=== PATIENT | female | born 1980 | race Caucasian/White ===

== ENCOUNTER → 2020-01-11 11:31 | Outpatient (CLI) | payer BC, MEDICARE, MEDICAID, SELFPAY ==
[2020-01-11 13:16] LABS: Amphetamine Urine VISTA NEGATIVE (<1000 ng/mL); Barbiturate Urine VISTA NEGATIVE (< 200 ng/mL); Benzodiazepine Urine VISTA NEGATIVE (< 200 ng/mL); Cocaine Urine VISTA NEGATIVE (< 300 ng/mL); Ecstacy Urine VISTA NEGATIVE (< 500 ng/mL); Methadone Urine VISTA NEGATIVE (< 300 ng/mL); PCP Urine VISTA NEGATIVE (< 25 ng/mL); THC Urine VISTA NEGATIVE (< 50 ng/mL); Vista UDS pH Range 6
== END ==
PROVIDERS: Referring Provider Anesthesiology Pain Medicine; Visit Provider Anesthesiology Pain Medicine
DX: F11.20 Opioid dependence, uncomplicated (principal)
CPT/HCPCS: 80307

== ENCOUNTER → 2020-06-14 14:47 | Outpatient (CLI) | payer MEDICARE, MEDICAID, SELFPAY ==
[2020-06-14 16:03] LABS: Amphetamine Urine VISTA POSITIVE (<1000 ng/mL); Barbiturate Urine VISTA NEGATIVE (< 200 ng/mL); Benzodiazepine Urine VISTA NEGATIVE (< 200 ng/mL); Cocaine Urine VISTA NEGATIVE (< 300 ng/mL); Ecstacy Urine VISTA POSITIVE (< 500 ng/mL); Methadone Urine VISTA NEGATIVE (< 300 ng/mL); PCP Urine VISTA NEGATIVE (< 25 ng/mL); THC Urine VISTA NEGATIVE (< 50 ng/mL); Vista UDS pH Range 5
== END ==
PROVIDERS: Visit Provider Anesthesiology Pain Medicine
DX: F11.20 Opioid dependence, uncomplicated (principal)
CPT/HCPCS: 80307

== ENCOUNTER → 2020-11-03 12:15 | Outpatient (CLI) | payer MEDICARE, MEDICAID, SELFPAY ==
[2020-11-03 13:35] LABS: Amphetamine Urine VISTA NEGATIVE (<1000 ng/mL); Barbiturate Urine VISTA NEGATIVE (< 200 ng/mL); Benzodiazepine Urine VISTA NEGATIVE (< 200 ng/mL); Cocaine Urine VISTA NEGATIVE (< 300 ng/mL); Ecstacy Urine VISTA POSITIVE (< 500 ng/mL); Methadone Urine VISTA NEGATIVE (< 300 ng/mL); PCP Urine VISTA NEGATIVE (< 25 ng/mL); THC Urine VISTA NEGATIVE (< 50 ng/mL); Vista UDS pH Range 5
== END ==
PROVIDERS: Referring Provider Anesthesiology Pain Medicine; Visit Provider Anesthesiology Pain Medicine
DX: F11.20 Opioid dependence, uncomplicated (principal)
CPT/HCPCS: 80307

== ENCOUNTER → 2022-11-25 | Outpatient (CLI) | payer MEDICARE, MEDICAID, SELFPAY ==
[2022-11-25 13:51] LABS: Amphetamine Urine VISTA POSITIVE (<1000 ng/mL); Barbiturate Urine VISTA NEGATIVE (< 200 ng/mL); Benzodiazepine Urine VISTA NEGATIVE (< 200 ng/mL); Cocaine Urine VISTA NEGATIVE (< 300 ng/mL); Ecstacy Urine VISTA POSITIVE (< 500 ng/mL); Methadone Urine VISTA NEGATIVE (< 300 ng/mL); PCP Urine VISTA NEGATIVE (< 25 ng/mL); THC Urine VISTA NEGATIVE (< 50 ng/mL); Vista UDS pH Range 5
== END | disposition home or self-care (01) ==
LOC: LAB 13:16
PROVIDERS: Referring Provider Anesthesiology Pain Medicine; Visit Provider Anesthesiology Pain Medicine
DX: F11.20 Opioid dependence, uncomplicated (principal)
CPT/HCPCS: 80307

== ENCOUNTER → 2023-08-04 | Outpatient (CLI) | payer MEDICARE, MEDICAID, SELFPAY ==
--- OUTSIDE RECORDS SUMMARY | 2023-08-04 13:14 | XMS RPT_ITS | CCD ---
Author Name Unknown Address [phone] [place] [address] Organization [facility] Care Team Providers Care Reel Cart Operator Name Role Phone Farver, Yanelis K. Unavailable Unavailable MOROCCO, YE Unavailable Unavailable FARVER, YANELIS K. Unavailable Unavailable MOROCCO, YE Unavailable Unavailable FARVER, YANELIS K. Unavailable Unavailable Geiger, Yanelis Darlene Unavailable Leo Bob Jr Unavailable Unavailable Leo Bob Jr Unavailable Unavailable Red, Joelle R Unavailable Unavailable Red Joelle R Unavailable Unavailable Shine, Blake J Unavailable Unavailable Shine, Blake J Unavailable Unavailable Farver, Yanelis K Unavailable Unavailable Farver, Yanelis K Unavailable Unavailable Yanelis Geiger Primary Care Provider Yanelis Geiger Primary Care Provider [phone] Anastasiya Valdez Unavailable Unavailable SAUL III, ROLDAN J Admitting Unavailable SAUL III, ROLDAN J Attending Unavailable FARVER, YANELIS Primary Care Unavailable FARVER, YANELIS Consulting Unavailable SAUL III, ROLDAN J Admitting Unavailable SAUL III, ROLDAN J Attending Unavailable SAUL III, ROLDAN J Consulting Unavailable NONE, NONE Consulting Unavailable LAKSHMIPATHY, NARENDRANATH Admitting Unava ilable LAKSHMIPATHY, NARENDRANATH Attending Unava ilable FARVER, YANELIS Primary Care Unavailable FARVER, YANELIS Consulting Unavailable Yanelis Geiger Primary Care Provider [phone] CINDY TORRES Admitting Unavailable CINDY TORRES Referring Unavailable YANELIS GEIGER Primary Care Unavailable José Miguel MA, Anastasiya Unavailable Unavailable Murray Lopez CNP Primary Care Provider VANDANA LOPEZKRISTIN NGUYEN Primary Care Unavailable RAMAN DE LA O Attending Unavailable RAMAN DE LA O Admitting Unavailable ANGLEELLIOT Attending Unavailab le DAY, SAUL VARGAS Primary Care Unavailable PRYKHODKO, TICO LOPEZ Attending U navailable DAY, SAUL ALICIA Primary Care Unavailable PRYKHODKO, TICO LOPEZ Attending U navailable DAY, SAUL ALICIA Primary Care Unavailable DAY, SAUL ALICIA Primary Care Unavailable PRYKHODKO, TICO PETERSH Attending U navailable DAY, SAUL ALICIA Primary Care Unavailable ELLIOT VARGAS Referring Unavailab le ANGLE, ELLIOT YE Attending Unavailab le ANGLE, ELLIOT YE Attending Unavailab le DAY, SAUL VARGAS Primary Care Unavailable ELLIOT VARGAS Referring Unavailab AURORA Morales Attending Unavailable AURORA PEREZ Primary Care Unavailable Chris INVESTMENT DIRECTOR-Aurora PETERSON Primary Care Provider Allergies Allergy Classification Reported Allergen(s) Allergy Type Date of Onset Reaction(s) Facility Mold Extract (2 sources) Mold Extract; Translations: [MOLD] Drug Allergy 8 Itching [facility] Opioid Agonists (2 sources) traMADol; Translations: [TRAMADOL] Drug Allergy 8 [facility] Pollen (2 sources) Tree and shrub pollen; Translations: [TREE AND SHRUB POLLEN] Substance Allergy 8 Itching, Rash [facility] (20 sources) traMADol; Translations: [TRAMADOL] Drug Allergy 8 Unknown [facility] Repository (1 source) NO KNOWN ALLERGIES; Translations: [NO KNOWN ALLERGIES] Propensity to adverse reactions to drug (disorder) [facility] Repository (20 sources) Mold Extract; Translations: [MOLD] Drug Allergy 8 Itching [facility] (20 sources) Tree and shrub pollen; Translations: [TREE AND SHRUB POLLEN] Propensity to adverse reactions to drug 8 Itching, Rash [facility] (20 sources) ANIMAL DANDER; Translations: [Unknown] Propensity to adverse reactions to drug 8 Itching, Rash [facility] Medications Current Medications Medication Drug Class(es) Dates Sig (Normalized) Sig (Original) acetaminophen 325 mg / HYDROcodone bitartrate 7.5 mg oral tablet (2 sources) Opioid Agonist Start: 07-14-2020 take 1 tablet by mouth four times daily as needed HYDROcodone-aceta minophen (NORCO) 7.5-325 mg per tablet TAKE 1 TABLET BY MOUTH 4 TIMES A DAY NEEDED FOR 28 DAYS 0 07/14/2020 Active acetaminophen 325 mg / oxyCODONE hydrochloride 5 mg oral tablet (1 source) Opioid Agonist Start: 09-03-2016 take 1 tablet by mouth once daily as needed oxyCODONE-acetami nophen (PERCOCET) 5-325 mg per tablet Take 1 tablet by mouth daily as needed. 0 09/03/2016 Active 0.4 ml adalimumab 100 mg/ml auto-injector (2 sources) Tumor Necrosis Factor Lisy Start: 08-08-2020 RAIZA Henley, Pen 40 mg/0.4 mL pen injector kit pen-injector Inject 1 Pen (40 mg) under the skin every 14 (fourteen) days. 0 08/08/2020 Active Completed/Discontinued Medications Medication Drug Class(es) Dates Sig (Normalized) Sig (Original) azelastine hydrochloride 0.5 mg/ml ophthalmic solution (5 sources) Histamine-1 Receptor Antagonist Start: 07-29-2018 End: 07-29-2019 take 1 drop(s) into the eye(s) twice daily as needed azelastine (OPTIVAR) 0.05 % ophthalmic solution Indications: Allergic conjunctivitis of both eyes Administer 1 (one) drop to both eyes 2 (two) times a day as needed for allergies . 6 mL 5 07/29/2018 02/05/2019 Discontinued (Patient's Request) 1 ml ketorolac tromethamine 30 mg/ml injection (1 source) Nonsteroidal Anti-inflammatory Drug, Cyclooxygenase Inhibitor Start: 09-21-2018 End: 09-21-2018 ketorolac (TORADOL) injection 60 mg 2 ml orphenadrine citrate 30 mg/ml injection (2 sources) Muscle Relaxant Start: 09-21-2018 End: 09-21-2018 orphenadrine (NORFLEX) injection 60 mg Problems Active Problems Problem Classification Problem Date Documented Date Episodic/Chronic Administrative/social admission (1 source) Patient encounter status; Translations: [Persons encountering health services in other specified circumstances] 11-01-2022 Episodic Anxiety disorders (4 sources) Anxiety disorder, unspecified; Translations: [Anxiety] Onset: 11-01-2022 Chronic Contraceptive and procreative management (2 sources) Intrauterine contraceptive device in situ; Translations: [IUD (intrauterine device) in place] Onset: 10-22-2018 10-22-2018 Fracture of lower limb (2 sources) Closed fracture patella, vertical ; Translations: [Closed vertical fracture of left patella with routine healing, subsequent encounter] Episodic Inflammation; infection of eye (except that caused by tuberculosis or sexually transmitteddisease) (1 source) Allergic conjunctivitis of bilateral eyes; Translations: [Allergic conjunctivitis of both eyes] Joint disorders and dislocations; trauma-related (20 sources) Traumatic arthropathy-ankle; Translations: [Post-traumatic osteoarthritis, left ankle and foot] Onset: 11-27-2017 11-27-2017 Chronic Joint disorders and dislocations; trauma-related (1 source) Tear of meniscus of knee; Translations: [Acute meniscal tear of knee, initial encounter] Episodic Mood disorders (20 sources) Depressive disorder; Translations: [Major depressive disorder, single episode, unspecified] Onset: 07-29-2017 07-29-2017 Chronic Nausea and vomiting (4 sources) Nausea; Translations: [Nausea] Onset: 11-01-2022 Episodic Nonmalignant breast conditions (2 sources) Mastodynia; Translations: [Mastodynia] Onset: 04-19-2022 Episodic Nutritional deficiencies (4 sources) Vitamin D deficiency, unspecified; Translations: [Vitamin D deficiency] Onset: 11-01-2022 Chronic Osteoarthritis (2 sources) Osteoarthritis of left knee joint; Translations: [Unilateral primary osteoarthritis, left knee] Onset: 08-27-2018 08-11-2020 Chronic Other connective tissue disease (1 source) Synovitis; Translations: [Synovitis of left ankle] Onset: 11-27-2017 11-27-2017 Episodic Other connective tissue disease (11 sources) Synovitis of left ankle joint; Translations: [Synovitis of left ankle] Onset: 11-27-2017 11-27-2017 Other ear and sense organ disorders (1 source) Excessive cerumen in ear canal ; Translations: [Excessive cerumen in right ear canal] Episodic Other nervous system disorders (11 sources) Carpal tunnel syndrome, right upper limb; Translations: [Carpal tunnel syndrome of right wrist] Onset: 10-15-2016 10-15-2016 Chronic Other nervous system disorders (10 sources) Difficulty in walking, not elsewhere classified; Translations: [Difficulty walking] Onset: 11-27-2017 11-27-2017 Chronic Other nervous system disorders (15 sources) Neuropathy; Translations: [Polyneuropathy, unspecified] Onset: 08-13-2018 08-13-2018 Chronic Other nervous system disorders (11 sources) Difficulty walking; Translations: [Difficulty walking] Onset: 11-27-2017 11-27-2017 Other nervous system disorders (11 sources) Carpal tunnel syndrome of right wrist; Translations: [Carpal tunnel syndrome on right] Onset: 10-15-2016 10-15-2016 Other non-traumatic joint disorders (1 source) Ankle pain; Translations: [Chronic pain of left ankle] Onset: 11-27-2017 11-27-2017 Episodic Other non-traumatic joint disorders (11 sources) Instability of joint of left ankle; Translations: [Left ankle instability] Onset: 11-27-2017 11-27-2017 Other nutritional; endocrine; and metabolic disorders (2 sources) Body mass index 25-29 - overweight; Translations: [Body mass index (BMI) 25.0-25.9, adult] Onset: 11-01-2022 11-01-2022 Episodic Other screening for suspected conditions (not mental disorders or infectious disease) (12 sources) Encounter for screening for lipoid disorders; Translations: [Encounter for screening for other suspected endocrine disorder] Onset: 11-01-2022 Episodic Other upper respiratory disease (14 sources) Allergic rhinitis; Translations: [Chronic allergic rhinitis] Chronic Other upper respiratory disease (1 source) Nasal obstruction; Translations: [Nasal obstruction] Episodic Other upper respiratory disease (1 source) Nasal mucosa dry; Translations: [Nasal dryness] Episodic Other upper respiratory infections (1 source) Chronic pansinusitis Chronic Rheumatoid arthritis and related disease (2 sources) Rheumatoid arthritis of multiple joints; Translations: [Rheumatoid arthritis with rheumatoid factor of multiple sites without organ or systems involvement] Onset: 11-01-2022 11-01-2022 Chronic Sprains and strains (2 sources) Strain of back muscle; Translations: [Strain of neck muscle] Episodic Viral infection (1 source) Disease caused by 2019-nCoV; Translations: [COVID-19] Past or Other Problems Problem Classification Problem Date Documented Date Episodic/Chronic Allergic reactions (2 sources) Dermatitis, unspecified; Translations: [Dermatitis, unspecified] Onset: 07-08-2017 Episodic Contraceptive and procreative management (12 sources) Presence of (intrauterine) contraceptive device; Translations: [IUD contraception] Onset: 10-22-2018 10-22-2018 Episodic Inflammation; infection of eye (except that caused by tuberculosis or sexually transmitteddisease) (15 sources) Acute atopic conjunctivitis, bilateral; Translations: [Conjunctivitis] Onset: 08-13-2018 08-13-2018 Episodic Mood disorders (1 source) Mood disorders Onset: 11-01-2022 11-01-2022 Other and unspecified benign neoplasm (2 sources) Melanocytic nevi of trunk; Translations: [Melanocytic nevi of trunk] Onset: 07-08-2017 Episodic Other connective tissue disease (9 sources) Synovitis and tenosynovitis, unspecified; Translations: [Synovitis of left ankle joint] Onset: 11-27-2017 11-27-2017 Episodic Other non-traumatic joint disorders (10 sources) Other instability, left ankle; Translations: [Instability of joint of left ankle] Onset: 11-27-2017 11-27-2017 Episodic Other non-traumatic joint disorders (20 sources) Pain in left ankle and joints of left foot; Translations: [Chronic ankle pain] Onset: 11-27-2017 Resolved: 11-01-2022 11-27-2017 Episodic Other non-traumatic joint disorders (1 source) Pain in joint, lower leg; Translations: [JOINT PAIN-LOWER LEG] Onset: 09-15-2019 Episodic Other non-traumatic joint disorders (2 sources) Pain in left knee; Translations: [PAIN IN LEFT KNEE] Onset: 06-09-2019 Episodic Other non-traumatic joint disorders (10 sources) Shoulder pain; Translations: [Pain in left shoulder] Onset: 06-23-2019 06-23-2019 Episodic Other non-traumatic joint disorders (1 source) Pain in left knee; Translations: [Pain in left knee] Onset: 08-25-2018 08-11-2020 Episodic Other non-traumatic joint disorders (1 source) Pain of joint of left lower leg; Translations: [Pain in left knee] Onset: 09-15-2019 08-11-2020 Episodic Other skin disorders (4 sources) Epidermal cyst; Translations: [Other specified nonscarring hair loss] Onset: 07-08-2017 Episodic Otitis media and related conditions (1 source) Fluid level behind tympanic membrane; Translations: [Fluid level behind tympanic membrane of left ear] Episodic Residual codes; unclassified (19 sources) Insomnia; Translations: [Insomnia, unspecified] Onset: 07-29-2017 07-29-2017 Episodic Spondylosis; intervertebral disc disorders; other back problems (20 sources) Low back pain; Translations: [Low back pain] Onset: 10-23-2017 10-23-2017 Episodic Unclassified (8 sources) H/O: surgery; Translations: [Insomnia] Onset: 07-29-2017 07-29-2017 Episodic Unclassified (1 source) JOINT PAIN-LOWER LEG; Translations: [JOINT PAIN-LOWER LEG] Onset: 09-15-2019 Unclassified (1 source) Onset: 11-01-2022 11-01-2022 Results Test Name Value Interpretation Reference Range Facil ity Vital Signs Date Time Vital Sign Value Performing Clinician Facility 11-01-2022 13:21-0400 Body height 157.5 cm Aurora Perez [employer]MENT [employer] Work Phone: [facility] 11-01-2022 13:21-0400 Body mass index (BMI) [Ratio] 25.06 kg/m2 Aurora Perez INVESTMENT DIRECTOR-[employer] P[employer]ER Work Phone: [facility] 11-01-2022 13:21-0400 Body weight 62.14 kg Aurora Perez INVESTMENT DIRECTOR-[employer] Work Phone: [facility] 11-01-2022 13:21-0400 Diastolic blood pressure 80 mm[Hg] Aurora Perez INVESTMENT DIRECTOR-[employer] Work Phone: [facility] 11-01-2022 13:21-0400 Heart rate 78 /min Aurora Perez [employer] Work Phone: [facility] 11-01-2022 13:21-0400 SaO2% (BldA) [Mass fraction] 99 % Aurora Perez INVESTMENT DIRECTOR-[employer] Work Phone: [facility] 11-01-2022 13:21-0400 Systolic blood pressure 118 mm[Hg] Aurora Chris INVESTMENT DIRECTOR-[employer] Work Phone: [facility] 09-17-2020 14:55-0400 Body height 157.5 cm Raman De La O MD Work Phone: [facility] 09-17-2020 14:55-0400 Body mass index (BMI) [Ratio] 26.7 kg/m2 Raman De La O MD Work Phone: [facility] 09-17-2020 14:55-0400 Body temperature 98.49 [degF] Raman De La O MD Work Phone: [facility] 09-17-2020 14:55-0400 Body weight 66.22 kg Raman De La O MD Work Phone: [facility] 09-17-2020 14:55-0400 Diastolic blood pressure 85 mm[Hg] Raman De La O MD Work Phone: [facility] 09-17-2020 14:55-0400 Heart rate 88 /min Raman De La O MD Work Phone: [facility] 09-17-2020 14:55-0400 Respiratory rate 16 /min Raman De La O MD Work Phone: [facility] 09-17-2020 14:55-0400 SaO2% (BldA) [Mass fraction] 99 % Raman De La O MD Work Phone: [facility] 09-17-2020 14:55-0400 Systolic blood pressure 127 mm[Hg] Raman De La O MD Work Phone: [facility] 02-16-2020 10:54-0400 BMI (Body Mass Index) 27.58 kg/m2 [facility] 02-16-2020 10:54-0400 Body Temperature 99.61 [degF] [facility] 02-16-2020 10:54-0400 Body weight 68.4 kg [facility] 02-16-2020 10:54-0400 BP Diastolic 93 mm[Hg] [facility] 02-16-2020 10:54-0400 BP Systolic 153 mm[Hg] [facility] 02-16-2020 10:54-0400 Height 157.5 cm [facility] 02-16-2020 10:54-0400 Pulse (Heart Rate) 69 /min [facility] 02-16-2020 10:54-0400 Pulse Oximetry 98 % [facility] 02-16-2020 10:54-0400 Respiratory Rate 18 /min [facility] 01-04-2020 12:51-0400 BMI (Body Mass Index) 28.53 kg/m2 [facility] 01-04-2020 12:51-0400 Body weight 70.76 kg [facility] 01-04-2020 12:51-0400 Height 157.5 cm [facility] 02-05-2019 09:43-0400 BMI (Body Mass Index) 28.2 kg/m2 [facility] 02-05-2019 09:43-0400 Body weight 69.94 kg [facility] 02-05-2019 09:43-0400 BP Diastolic 88 mm[Hg] [facility] 02-05-2019 09:43-0400 BP Systolic 130 mm[Hg] [facility] 02-05-2019 09:43-0400 Pulse (Heart Rate) 80 /min [facility] 02-05-2019 09:43-0400 Pulse Oximetry 98 % [facility] 10-27-2018 13:30-0400 BMI (Body Mass Index) 28.59 kg/m2 [facility] 10-27-2018 13:30-0400 Body weight 70.9 kg [facility] 10-27-2018 13:30-0400 BP Diastolic 86 mm[Hg] [facility] 10-27-2018 13:30-0400 BP Systolic 120 mm[Hg] [facility] 10-27-2018 13:30-0400 Height 157.5 cm [facility] 10-27-2018 13:30-0400 Pulse (Heart Rate) 59 /min [facility] 10-27-2018 13:30-0400 Pulse Oximetry 94 % [facility]-2018 20:59-0400 BP Diastolic 95 mm[Hg] [facility] 09-21-2018 20:59-0400 BP Systolic 135 mm[Hg] [facility] 09-21-2018 20:59-0400 Pulse (Heart Rate) 84 /min [facility] 09-21-2018 20:59-0400 Pulse Oximetry 97 % [facility] 09-21-2018 20:59-0400 Respiratory Rate 16 /min [facility] 09-21-2018 18:55-0400 BMI (Body Mass Index) 28.9 kg/m2 [facility] 09-21-2018 18:55-0400 Body Temperature 99.81 [degF] [facility] 09-21-2018 18:55-0400 Height 157.5 cm [facility] 09-21-2018 18:55-0400 Weight 71.67 kg [facility] 07-29-2018 14:13-0500 BMI (Body Mass Index) 28.45 kg/m2 [facility] 07-29-2018 14:13-0500 BP Diastolic 80 mm[Hg] [facility] 07-29-2018 14:13-0500 BP Systolic 114 mm[Hg] [facility] 07-29-2018 14:13-0500 Pulse (Heart Rate) 73 /min [facility] 07-29-2018 14:13-0500 Pulse Oximetry 95 % [facility] 07-29-2018 14:13-0500 Weight 72.85 kg [facility] 02-09-2018 14:50-0400 BMI (Body Mass Index) 32.78 kg/m2 Tico Prykhodko [facility] 02-09-2018 14:50-0400 BP Diastolic 84 mm[Hg] Tico Prykhodko [facility] 02-09-2018 14:50-0400 BP Systolic 132 mm[Hg] Tico Prykhojuliao [facility] 02-09-2018 14:50-0400 Height 149.9 cm Tico Gross [facility] 02-09-2018 14:50-0400 Pulse (Heart Rate) 80 /min Tico Gross [facility] 02-09-2018 14:50-0400 Pulse Oximetry 93 % Tico Gross [facility] 02-09-2018 14:50-0400 Weight 73.62 kg Tico Gross [facility] 03-14-2017 09:39-0400 BMI (Body Mass Index) 28.7 kg/m2 Tico Gross [facility] Work Phone: 03-14-2017 09:39-0400 BP Diastolic 89 mm[Hg] Tico Gross [facility] Work Phone: 03-14-2017 09:39-0400 BP Systolic 121 mm[Hg] Tico Gross [facility] Work Phone: 03-14-2017 09:39-0400 Pulse (Heart Rate) 88 /min Tico Gross [facility] Work Phone: 03-14-2017 09:39-0400 Pulse Oximetry 91 % Tico Gross [facility] Work Phone: 03-14-2017 09:39-0400 Weight 71.76 kg Tico Gross [facility] Work Phone: Encounters Encounter Date Encounter Type Care Provider Facility Start: 11-01-2022 End: 11-01-2022 ambulatory AURORA PEREZ [facility] Ambulatory Start: 11-01-2022 End: 11-01-2022 Office outpatient new 45 minutes Aurora Perez INVESTMENT DIRECTOR[employer] Work Phone: [facility] Procedures Date Procedure Procedure Detail Performing Clinician Start: 04-19-2022 Mammography Aurora nettles INVESTMENT DIRECTOR[employer] Work Phone: Start: 03-19-2022 Microscopic observat ion [Identifier] in Cervix by Cyto stain Aurora Perez INVESTMENT DIRECTOR[employer] Work Phone: Start: 09-17-2020 SARS-CoV-2 (COVID-19 ) RdRp gene [Presence] in Respiratory specimen by MARISOL with probe detection Raman De La O MD Work Phone: Start: 08-11-2020 End: 11-01-2022 H/O: surgery History of surgical procedure Raman De La O MD Work Phone: Start: 10-22-2018 Microscopic observat ion [Identifier] in Cervix by Cyto stain Singh Lead Pressman Start: 09-22-2018 Standard chest X-ray Michela birch Ernesto Lopez Work Phone: Start: 09-22-2018 Radiologic examinati on pelvis 1/2 views Leo Lopez Work Phone: Start: 09-22-2018 X-ray of left knee Daniel ael Ernesto Lopez Work Phone: Start: 09-22-2018 Radex spine lumbosac ral 2/3 views Leo Lopez Work Phone: Start: 09-22-2018 Radex spine thoracic 3 views Leo Lopez Work Phone: Start: 09-22-2018 CT cervical spine without contrast Leo Lopez Work Phone: Start: 09-04-2017 Microscopic observat ion [Identifier] in Cervix by Cyto stain Leo Bob Plan of Treatment Date Care Activity Detail Author Start: 2030 Zoster Vaccines (1 o f 2) Zoster Vaccines (1 of 2) [facility] Start: 03-19-2025 Screening for malign ant neoplasm of cervix [facility] Start: 10-23-2023 Screening for malign ant neoplasm of cervix PAP SMEAR [facility] Start: 04-19-2023 Screening for malign ant neoplasm of breast Mammogram [facility] Start: 01-31-2023 Influenza vaccination Influenz a Vaccine (Season Ended) [facility] Start: 11-01-2022 End: 11-02-2023 25-hydroxyvitamin D3 [Mass/volume] in Serum or Plasma Vitamin D, Total Lab Routine Screening for lipid disorders Vitamin D deficiency, unspecified Expected: 11/01/2022 (Approximate), Expires: 11/02/2023 [facility] Work Phone: Payers Date Payer Category Payer Medicare HUMANA MEDICARE HUMANA GOLD CHOICE [id number] 2020-Present [address] [address] [place] [address] [id number] 2019 Medicaid MEDICAID MEDICAI D [id number] 2019-Present [address] [place] [address] [id number] 2019 Medicaid [id number] 2017 Medicaid [id number] 2016 Medicare [id number] 2015 Medicare [id number] 2015 Medicare HUMANA MANAGED M EDICARE HUMANA MCR ADVANTAGE CHOICE PPO xxxxxxxxx 2015-Present xxxxxxxxx [id number] 2015 Medicare [id number] 2015 Medicaid [id number] 2015 Medicare [id number] 1980 Unknown [id number] 1980 Unknown [id number] 1980 Unknown [id number] 1980 Unknown [id number] 1980 Unknown [id number] 1980 Unknown [id number] 1980 Unknown [id number] 1980 Unknown [id number] 1980 Unknown [id number] 1980 Unknown [id number] 1980 Unknown [id number] Social History Date Type Detail Facility Start: 03-14-2017 End: 11-01-2022 Tobacco smoking status [facility] Never smoker [facility] Work Phone: Start: 1980 Sex Assigned At Not on file [facility] Work Phone: Start: 09-20-2015 Alcohol Comment rarely [facility] Start: 02-05-2019 End: 09-17-2020 Alcohol intake Current drinker of alcohol (finding) [facility] Start: 01-18-2020 End: 11-01-2022 Tobacco use and exposure Never used [facility] Start: 10-22-2022 End: 11-01-2022 Exposure to SARS-CoV-2 (event) Not sure [facility] Start: 11-01-2022 History of Social function [facility] Work Phone: Start: 11-01-2022 Tobacco use panel [facility] Work Phone: Goals Date Patient Goal Desired Activity /State Clinical Notes 09-17-2020 to 11-01-2022 Assessment & Plan Note - VALERY Salcedo - 11/01/2022 2:22 PM EDTAssessment & Plan Note - VALERY Salcedo - 11/01/2022 2:22 PM Raman Varner MD - 09/17/2020 3:56 PM EDT Note Date & Type Note Facility 11-01-2022 Evaluation + Plan note Associated Problem(s): Anxiety Buspirone 15 mg TID -refilled Referral sent to [facility] services for Lorazepam fill as I do no feel comfortable filling d/t chronic use of Rx Opiate and Gabapentin through pain mgmt. [facility] Work Phone: 11-01-2022 Miscellaneous Notes Associate d Problem(s): Anxiety Buspirone 15 mg TID -refilled Referral sent to [facility] services for Lorazepam fill as I do no feel comfortable filling d/t chronic use of Rx Opiate and Gabapentin through pain mgmt. Associated Problem(s): Vitamin D deficiency, unspecified Vitamin D level Associated Problem(s): Rheumatoid arthritis involving multiple sites with positive rheumatoid factor ([facility]) Is managed by Rheumatology[facility] Currently on Humira Associated Problem(s): Depression Bupropion 75 mg daily- refilled Associated Problem(s): Neuropathy Managed by Dr. Lori rosen at [place] Gabapentin 300 mg [place] documented in this encounter [facility] Work Phone: 11-01-2022 Evaluation + Plan note Associated Problem(s): Vitamin D deficiency, unspecified Vitamin D level [facility] Work Phone: 11-01-2022 Evaluation + Plan note Associated Problem(s): Rheumatoid arthritis involving multiple sites with positive rheumatoid factor ([facility]) [facility] Work Phone: 11-01-2022 Evaluation + Plan note Associated Problem(s): Depression Bupropion 75 mg daily- refilled [facility] Work Phone: 11-01-2022 Evaluation + Plan note Associated Problem(s): Neuropathy Managed by Dr. Lori rosen at [place] Gabapentin 300 mg [place] [facility] Work Phone: 11-01-2022 History of Presen t illness Narrative Subjective Patient ID: Jo Roche is a 42 y.o. female who presents to establish with PCP; previous pt at [address] [place] [address]; medication review and refills; discuss dose change for Buspar. HPI Jo here to establish care. Has history of anxiety, RA, Left leg chronic pain, Severe seasonal allergies requiring allergy shots. Anxiety: Is controlled on Wellbutrin, buspar, and takes Lorazepam as needed for panic attacks. Pain management for Gabapentin, and [place]-Dr. Ortiz in [place]. RA: through Rheum at [facility] Dermatology: Dr. Wooten office Podiatry: Dr. Moon ENT: Dr. Ward at [facility]-was getting allergy shots/had an epi pen. Review of Systems Constitutional: Negative for fatigue. Respiratory: Negative for chest tightness and shortness of breath. Cardiovascular: Negative for chest pain, palpitations and leg swelling. Gastrointestinal: Negative for abdominal pain, blood in stool, constipation, diarrhea, nausea and vomiting. Genitourinary: Negative for dysuria. Musculoskeletal: Negative for arthralgias and myalgias. Skin: Negative for color change. Neurological: Negative for dizziness, light-headedness and headaches. Psychiatric/Behavioral: Negative for dysphoric mood, self-injury, sleep disturbance and suicidal ideas. The patient is not nervous/anxious. Objective Vitals: 11/01/22 1321 BP: 118/80 BP Location: Right arm Pulse: 78 SpO2: 99% Weight: 62.1 kg (137 lb) Height: 1.575 m (5' 2 ) Physical Exam Vitals and nursing note reviewed. Constitutional: Appearance: Normal appearance. HENT: Head: Normocephalic and atraumatic. Cardiovascular: Rate and Rhythm: Normal rate and regular rhythm. Pulses: Normal pulses. Heart sounds: Normal heart sounds. Pulmonary: Effort: Pulmonary effort is normal. Breath sounds: Normal breath sounds. Abdominal: General: Bowel sounds are normal. Palpations: Abdomen is soft. Musculoskeletal: General: Normal range of motion. Cervical back: Normal range of motion and neck supple. Skin: General: Skin is warm and dry. Neurological: Mental Status: She is alert and oriented to person, place, and time. Psychiatric: Mood and Affect: Mood normal. Behavior: Behavior normal. Thought Content: Thought content normal. Judgment: Judgment normal. Assessment/Plan Diagnoses and all orders for this visit: Encounter to establish care Anxiety - Referral to Psychiatry; Future Persistent depressive disorder - buPROPion (Wellbutrin) 75 mg tablet; Take 1 tablet (75 mg) by mouth once daily. - busPIRone (Buspar) 15 mg tablet; Take 1 tablet (15 mg) by mouth 3 times a day as needed (anxiety). Nausea - promethazine (Phenergan) 25 mg tablet; Take 1 tablet (25 mg) by mouth every 6 hours if needed for nausea or vomiting. - CBC and Auto Differential; Future Rheumatoid arthritis involving multiple sites with positive rheumatoid factor ([facility]) Screening for lipid disorders - Lipid Panel; Future - Vitamin D, Total; Future Screening for thyroid disorder - TSH with reflex to Free T4 if abnormal; Future Screening for diabetes mellitus (DM) - Comprehensive Metabolic Panel; Future Encounter for vitamin deficiency screening Vitamin D deficiency, unspecified - Vitamin D, Total; Future BMI 25.0-25.9,adult Problem List Items Addressed This Visit Depression Bupropion 75 mg daily- refilled Relevant Medications buPROPion (Wellbutrin) 75 mg tablet busPIRone (Buspar) 15 mg tablet Rheumatoid arthritis involving multiple sites with positive rheumatoid factor ([facility]) Is managed by [facility]ology[facility] Currently on Humira Anxiety Buspirone 15 mg TID -refilled Referral sent to [facility] health services for Lorazepam fill as I do no feel comfortable filling d/t chronic use of Rx Opiate and Gabapentin through pain mgmt. Relevant Orders Referral to Psychiatry Nausea Relevant Medications promethazine (Phenergan) 25 mg tablet Other Relevant Orders CBC and Auto Differential BMI 25.0-25.9,adult Vitamin D deficiency, unspecified Vitamin D level Relevant Orders Vitamin D, Total Other Visit Diagnoses Encounter to establish care - Primary Screening for lipid disorders Relevant Orders Lipid Panel Vitamin D, Total Screening for thyroid disorder Relevant Orders TSH with reflex to Free T4 if abnormal Screening for diabetes mellitus (DM) Relevant Orders Comprehensive Metabolic Panel Encounter for vitamin deficiency screening Follow up in 1 year for wellness exam. Will call her with results of labs. documented in this encounter [facility] Work Phone: 09-17-2020 Emergency department Note Patient has verbalized understanding of follow up, home care instructions, and prescriptions. Has no further questions or concerns. No signs of distress or discomfort noted upon departure. ED PROVIDER NOTE [facility] EMERGENCY DEPARTMENT NAME: Jo Roche AGE: 40 y.o. : 1980 VISIT DATE: 09/17/2020 CSN: [id number] PCP: Murray Lopez SHOE PULLER Chief Complaint Patient presents with Cough Nasal Congestion Patient is a 40-year-old female presents to emergency complaining of cough, nasal congestion for the past couple of days. Patient also reports fatigue and feeling hot. Denies any abdominal pain, no nausea no vomiting no neck pain. No difficulty breathing. Past Medical History: Diagnosis Date Anemia Depression Past Surgical History: Procedure Laterality Date ACHILLES TENDON SURGERY release ACL REPAIR ADENOIDECTOMY ankle scope KNEE CARTILAGE SURGERY LEG SURGERY Left rods, pins and screws, muscle transplant SINUS SURGERY SKIN GRAFT LOWER EXTREMITY TONSILLECTOMY Family History Problem Relation Age of Onset Heart disease Father Cancer Paternal Aunt Cancer Maternal Grandmother Cancer Paternal Grandmother Social History Socioeconomic History Marital status: Spouse name: Not on file Number of children: Not on file Years of education: Not on file Highest education level: Not on file Occupational History Not on file Social Needs Financial resource strain: Not on file Food insecurity Worry: Not on file Inability: Not on file Transportation needs Medical: Not on file Non-medical: Not on file Tobacco Use Smoking status: Never Smoker Smokeless tobacco: Never Used Substance and Sexual Activity Alcohol use: Yes Comment: rarely Drug use: No Sexual activity: Yes Partners: Male control/protection: I.U.D. Lifestyle Physical activity Days per week: Not on file Minutes per session: Not on file Stress: Not on file Relationships Social connections Talks on phone: Not on file Gets together: Not on file Attends yazdanism service: Not on file Active member of club or organization: Not on file Attends meetings of clubs or organizations: Not on file Relationship status: Not on file Other Topics Concern Not on file Social History Narrative Not on file Previous Medications Medication Sig buPROPion (WELLBUTRIN) 75 MG tablet Take 1 (one) tablet (75 mg total) by mouth daily . busPIRone (BUSPAR) 10 MG tablet Take 1 (one) tablet (10 mg total) by mouth 3 (three) times a day . chlorthalidone (HYGROTEN) 25 MG tablet Take 1 (one) tablet (25 mg total) by mouth daily . citalopram (CELEXA) 20 MG tablet Take 1 (one) tablet (20 mg total) by mouth daily . EPINEPHrine (EPIPEN) 0.3 mg/0.3 mL AtIn Inject 0.3 mL (0.3 mg total) into the mid-thigh as needed for severe allergic reaction. . fexofenadine (BETZAIDA) 180 MG tablet Take 1 (one) tablet (180 mg total) by mouth daily . fluticasone propionate (FLONASE) 50 mcg/actuation nasal spray Instill 2 (two) sprays into each nostril daily . gabapentin (NEURONTIN) 300 MG capsule Take 1 (one) capsule (300 mg total) by mouth 3 (three) times a day Do not fill until December 06 . RAIZA Henley, Pen 40 mg/0.4 mL PnKt HYDROcodone-acetaminophen (NORCO) 7.5-325 mg per tablet TAKE 1 TABLET BY MOUTH 4 TIMES A DAY NEEDED FOR 28 DAYS loratadine (CLARITIN) 10 mg tablet Take 1 (one) tablet (10 mg total) by mouth daily . LORazepam (ATIVAN) 0.5 MG tablet Take 1 (one) tablet (0.5 mg total) by mouth every 12 (twelve) hours as needed for anxiety . promethazine (PHENERGAN) 25 MG tablet Take 1 (one) tablet (25 mg total) by mouth every 6 (six) hours as needed for nausea . syringe with needle Syrg Administer 2 allergy injections weekly, using two allergy syringes weekly . vilazodone (Viibryd) 20 mg tablet Take 1 (one) tablet (20 mg total) by mouth daily with breakfast . Allergies Allergen Reactions Tramadol Animal Dander Itching and Rash Mold Itching Tree And Shrub Pollen Itching and Rash Review of Systems All other systems reviewed and are negative. Patient Vitals for the past 24 hrs: BP Temp Temp src Pulse Resp SpO2 Height Weight 09/17/20 1455 127/85 98.5 F (36.9 C) Oral 88 16 99 % 5' 2 66.2 kg (146 lb) Physical Exam Vitals signs and nursing note reviewed. Constitutional: General: She is not in acute distress. Appearance: Normal appearance. She is not ill-appearing, toxic-appearing or diaphoretic. HENT: Head: Normocephalic and atraumatic. Nose: No congestion or rhinorrhea. Mouth/Throat: Mouth: Mucous membranes are moist. Pharynx: No oropharyngeal exudate or posterior oropharyngeal erythema. Eyes: General: Right eye: No discharge. Left eye: No discharge. Conjunctiva/sclera: Conjunctivae normal. Neck: Musculoskeletal: Normal range of motion and neck supple. No neck rigidity. Cardiovascular: Rate and Rhythm: Normal rate and regular rhythm. Pulmonary: Effort: Pulmonary effort is normal. No respiratory distress. Breath sounds: Normal breath sounds. No stridor. No wheezing or rhonchi. Musculoskeletal: General: No deformity or signs of injury. Right lower leg: No edema. Left lower leg: No edema. Lymphadenopathy: Cervical: No cervical adenopathy. Skin: General: Skin is warm. Coloration: Skin is not jaundiced. Neurological: General: No focal deficit present. Mental Status: She is alert and oriented to person, place, and time. Psychiatric: Mood and Affect: Mood normal. Behavior: Behavior normal. Laboratory & Radiographic Imaging (if done): Results for orders placed or performed during the hospital encounter of 09/17/20 COVID-19, Molecular Specimen: Nasopharyngeal; Swab Result Value Ref Range SARS-CoV-2 Detected (A) Not Detected No orders to display Procedures MDM Number of Diagnoses or Management Options COVID-19 virus infection Diagnosis management comments: COVID-19 test positive, results discussed with patient. Patient pulse oxygenation is 99% on room air. And her vital signs are stable. She was encouraged to drink plenty of fluids, self quarantine and follow-up with primary care doctor. The patient has been informed that they may have pre-hypertension or hypertension based on a blood pressure reading in the Emergency Department. I recommend that the patient call the primary care provider listed on their discharge instructions or a physician of their choice as soon as possible to arrange follow-up in the next 4 weeks for further evaluation of possible pre-hypertension or hypertension. . Clinical Impression: 1. COVID-19 virus infection ED Disposition ED Disposition Condition Comment Discharge Stable Jo Noe Blankkimberly discharged to home/self care in stable condition. Follow-up Information 1. Murray Lopez CNP. Specialty: Nurse Practitioner Why: Call for appointment. Return to emergency if any worsening of the symptoms. [address] [id number] Contact information for after-discharge care Follow-up information has not been specified. New Prescriptions benzonatate (TESSALON) 100 MG capsule Take 1 (one) capsule (100 mg total) by mouth 3 (three) times a day as needed for cough . Raman De La O MD 09/17/20 1613 Special isolation precautions are in place with signage outside this patient's room. This life care planner performs hand hygiene and enters the patient room wearing: ? gloves ? an appropriately fitting (N-95, PAPR, Aura) mask ? face shield ? protective gown to provide care. See documentation for the care provided. Pt reports she has had body aches, congestion, and fatigue starting Friday. documented [facility] this encounter [facility] Diagnosis Encounter to establish care- Primary Anxiety Anxiety state, unspecified Persistent depressive disorder Nausea Nausea alone Rheumatoid arthritis involving multiple sites with positive rheumatoid factor ([facility]) Screening for lipid disorders Screening for thyroid disorder Screening for diabetes mellitus (DM) Screening for diabetes mellitus Encounter for vitamin deficiency screening Vitamin D deficiency, unspecified BMI 25.0-25.9,adult documented in this encounter [facility] Work Phone: Hospital Discharge instructions* Attachments The following attachments cannot be sent through Care Everywhere. * Coronavirus Disease (COVID-19): General Info (Moroccan) * Coronavirus Disease (COVID-19): Isolation (Moroccan) [facility]Health[facility] for referral (narrative)* Consultation (Routine) - Authorized Specialty Diagnoses / Procedures Referred By Justin dye Referred To Contact Psychiatry Diagnoses Anxiety Procedures IN OFFICE/OUTPATIENT NEW HIGH MDM 60-74 MINUTES Aurora Perez, INVESTMENT DIRECTOR-SHOE PULLER [address] [facility] [address] [place] [address] Referral ID Status Reason Start Date Expiration Date Visits Requested Visits Authorized [id number] Authorized Specialty Services Required 11/01/2022 04/30/2023 1 1 [facility] Work Phone: Assessments Diagnosis S/P FESS (functional endosco pic sinus surgery) - Primary Other postprocedural status S/P nasal septoplasty Diagnosis Chronic allergic rhinitis - Primary Chronic pansinusitis Other chronic sinusitis S/P FESS (functional endosco pic sinus surgery) Other postprocedural status S/P adenoidectomy S/P nasal septoplasty Diagnosis Chronic allergic rhinitis - Primary Diagnosis Chronic allergic rhinitis - Primary Diagnosis Chronic allergic rhinitis- Primary Diagnosis Chronic allergic rhinitis- Primary Allergic conjunctivitis of both eyes Other chronic allergic conjunctivitis Nasal obstruction Other diseases of nasal cavity and sinuses Diagnosis Chronic allergic rhinitis- Primary Diagnosis Strain of neck muscle, initial encounter- Primary Back strain, initial encounter Diagnosis Chronic allergic rhinitis- Primary Diagnosis Chronic allergic rhinitis- Primary Allergic conjunctivitis of both eyes Other chronic allergic conjunctivitis Diagnosis Closed vertical fracture of left patella with routine healing, subsequent encounter- Primary Acute meniscal tear of knee, initial encounter Diagnosis Chronic allergic rhinitis- Primary Nasal dryness Other diseases of nasal cavity and sinuses Excessive cerumen in right ear canal Diagnosis Chronic allergic rhinitis Diagnosis Chronic allergic rhinitis- Primary Fluid level behind tympanic membrane of left ear Diagnosis Closed vertical fracture of left patella, initial encounter Summary Purpose Family History No Family History Records FoundNo Family History Records FoundNo Family History Records FoundNo Family History Records FoundNo Family History Records FoundNo Family History Records FoundNo Family History Records FoundNo Family History Records FoundNo Family History Records FoundNo Family History Records Found Advance Directives Documents on File Type Date Recorded Patient Folding Machine Feeder Expl anation Advance Directives and Livin g Will 09/21/2018 7:24 PM Documents on File Type Date Recorded Patient Folding Machine Feeder Expl anation Advance Directives and Livin g Will 01/18/2020 1:02 PM Documents on File Type Date Recorded Patient Folding Machine Feeder Expl anation Advance Directives and Livin g Will 01/18/2020 1:02 PM Documents on File Type Date Recorded Patient Folding Machine Feeder Expl anation Advance Directives and Livin g Will 09/17/2020 1:02 PM History of Present Illness * Najma Vaca LPN - 05/22/2018 1:29 PM EST New treatment vials made exp. 11/18/18 in this encounter* Susy Jaquez CNP - 07/29/2018 3:46 PM EST ENT Clinic Follow up Note History of Present Illness Jo Roche is a 38 y.o. y/o female presents for follow up regarding chronic allergic rhinitis. She is a known patient of our clinic who has history of septo\Fess procedure performed October 2017 [address]Dr. Yuen. Patient received allergy testing in March 2018 and has been doing at home buildup S CIT since that time. Patient denies any reactions from the injections. States she has since discontinuedher Betzaida and Singulair and is only using Flonase daily. Patient reports over the past several weeks she is noticed an increase in nasal congestion, sinus pressure itchy, watery eyes and drainage from the eyes. She denies any recent fevers or infections. Allergies Allergen Reactions Tramadol Animal Dander Itching and Rash Mold Itching Tree And Shrub Pollen Itching and Rash Past Medical History: Diagnosis Date Anemia Depression Social History Socioeconomic History Marital status: Spouse name: Not on file Number of children: Not on file Years of education: Not on file Highest education level: Not on file Social Needs Financial resource strain: Not on file Food insecurity - worry: Not on file Food insecurity - inability: Not on file Transportation needs - medical: Not on file Transportation needs - non-medical: Not on file Occupational History Not on file Tobacco Use Smoking status: Never Smoker Smokeless tobacco: Never Used Substance and Sexual Activity Alcohol use: Yes Comment: rarely Drug use: No Sexual activity: Not on file Other Topics Concern Not on file Social History Narrative Not on file Family History Problem Relation Age of Onset Heart disease Father Cancer Paternal Aunt Cancer Maternal Grandmother Cancer Paternal Grandmother Past Surgical History: Procedure Laterality Date ACHILLES TENDON SURGERY release ACL REPAIR ADENOIDECTOMY ankle scope KNEE CARTILAGE SURGERY LEG SURGERY Left rods, pins and screws, muscle transplant SINUS SURGERY SKIN GRAFT LOWER EXTREMITY TONSILLECTOMY The following systems were reviewed and revealed the following in addition to any already discussedin the HPI: Review of Systems Constitution: Negative for chills, fever and malaise/fatigue. HENT: Positive for congestion. Negative for ear discharge, ear pain, hearing loss, hoarse voice, nosebleeds, sore throat and tinnitus. Patient has noticed an increase in nasal congestion, runny nose, sinus pressure over the past several weeks History of septo\Fess procedure October [address] Yuen Eyes: Negative for discharge, pain, photophobia and redness. Itchy, watery eyes, occasional clear film over her eyes Cardiovascular: Negative for chest pain, leg swelling, near-syncope and syncope. Respiratory: Negative for cough, shortness of breath, sleep disturbances due to breathing and snoring. Endocrine: Negative for cold intolerance and heat intolerance. Hematologic/Lymphatic: Negative for adenopathy and bleeding problem. Does not bruise/bleed easily. Skin: Negative for color change, dry skin, itching and rash. Musculoskeletal: Negative for falls, joint swelling, muscle cramps and muscle weakness. Gastrointestinal: Negative for nausea and vomiting. Neurological: Positive for headaches ( Occasional due to sinus pressure). Negative for dizziness, light-headedness, loss of balance, numbness, seizures, tremors, vertigo and weakness. Psychiatric/Behavioral: Positive for depression ( Patient is currently taking Wellbutrin and Celexa). Negative for altered mental status and substance abuse. The patient is not nervous/anxious. Allergic/Immunologic: Positive for environmental allergies ( Patient is currently doing weekly buildup S CIT at home, in addition to Flonase daily). Negative for persistent infections. Physical Exam Vitals: 07/29/18 1413 BP: 114/80 Pulse: 73 SpO2: 95% Weight: 72.8 kg (160 lb 9.6 oz) Physical Exam Constitutional: She is oriented to person, place, and time and well-developed, well-nourished, and in no distress. Vital signs are normal. She appears healthy. She does not have a sickly appearance. No distress. HENT: Head: Normocephalic and atraumatic. Right Ear: Hearing, tympanic membrane, external ear and ear canal normal. No drainage, swelling or tenderness. No foreign bodies. No mastoid tenderness. No middle ear effusion. No decreased hearing is noted. Left Ear: Hearing, tympanic membrane, external ear and ear canal normal. No drainage, swelling or tenderness. No foreign bodies. No mastoid tenderness. No middle ear effusion. No decreased hearing ( ) is noted. Nose: Mucosal edema and rhinorrhea present. No nose lacerations, sinus tenderness, nasal deformity or septal deviation. Right sinus exhibits maxillary sinus tenderness. Right sinus exhibits no frontal sinus tenderness. Left sinus exhibits maxillary sinus tenderness. Left sinus exhibits no frontal sinus tenderness. Mouth/Throat: Uvula is midline, oropharynx is clear and moist and mucous membranes are normal. No oropharyngeal exudate. Eyes: Right eye exhibits no discharge. Left eye exhibits no discharge. Right conjunctiva is injected ( Mild). Left conjunctiva is injected ( Mild). Neck: Trachea normal. No tracheal deviation present. No thyroid mass present. Lymphadenopathy: Head (right side): No submental and no submandibular adenopathy present. Head (left side): No submental and no submandibular adenopathy present. She has no cervical adenopathy. Neurological: She is alert and oriented to person, place, and time. Gait normal. GCS score is 15. Skin: Skin is warm and dry. She is not diaphoretic. Psychiatric: Mood normal. Assessment and Plan: Jo Roche is a 38 y.o. y/o female who presents with chronic allergic rhinitis. She is a known patient of our clinic who has history of septo\Fess procedure performed October 2017 byDr. Yuen. Patient received allergy testing in March 2018 and has been doing at home buildup S CIT since that time. Patient denies any reactions from the injections. States she has since discontinuedher Betzaida and Singulair and is only using Flonase daily. Patient reports over the past several weeks she is noticed an increase in nasal congestion, sinus pressure itchy, watery eyes and drainage from the eyes. She denies any recent fevers or infections. Subjective history and physical exam are consistent with chronic allergic rhinitis. Patient was educated she should resume her Betzaida and Singulair since she is very early on in buildup of immunotherapy. She was educated that it takes the body time to build up immunity to allergens so I usually have patient stay on their medical management in the beginning until their system has time to build upimmunity. Refills provided and patient will be given a prescription for trial of Optivar for allergic conjunctivitis. Follow-up in 3 months for evaluation of allergies. She may follow-up sooner for any related or not related problems or concerns. 1. Chronic allergic rhinitis - syringe with needle Syrg; Administer 2 allergy injections weekly, using two allergy syringes weekly . Dispense: 100 Syringe; Refill: 5 - fexofenadine (BETZAIDA) 180 MG tablet; Take 1 (one) tablet (180 mg total) by mouth daily . Dispense: 30 tablet; Refill: 11 - montelukast (SINGULAIR) 10 mg tablet; Take 1 (one) tablet (10 mg total) by mouth nightly . Dispense: 30 tablet; Refill: 11 2. Nasal obstruction - fluticasone (FLONASE) 50 mcg/actuation nasal spray; Instill 2 (two) sprays into each nostril daily . Dispense: 16 g; Refill: 11 - fexofenadine (BETZAIDA) 180 MG tablet; Take 1 (one) tablet (180 mg total) by mouth daily . Dispense: 30 tablet; Refill: 11 - montelukast (SINGULAIR) 10 mg tablet; Take 1 (one) tablet (10 mg total) by mouth nightly . Dispense: 30 tablet; Refill: 11 3. Allergic conjunctivitis of both eyes - azelastine (OPTIVAR) 0.05 % ophthalmic solution; Administer 1 (one) drop to both eyes 2 (two) times a day as needed for allergies . Dispense: 6 mL; Refill: 5 Diagnoses and all orders for this visit: Chronic allergic rhinitis - syringe with needle Syrg; Administer 2 allergy injections weekly, using two allergy syringes weekly . - fexofenadine (BETZAIDA) 180 MG tablet; Take 1 (one) tablet (180 mg total) by mouth daily . - montelukast (SINGULAIR) 10 mg tablet; Take 1 (one) tablet (10 mg total) by mouth nightly . Allergic conjunctivitis of both eyes - azelastine (OPTIVAR) 0.05 % ophthalmic solution; Administer 1 (one) drop to both eyes 2 (two) times a day as needed for allergies . Nasal obstruction - fluticasone (FLONASE) 50 mcg/actuation nasal spray; Instill 2 (two) sprays into each nostril daily . - fexofenadine (BETZAIDA) 180 MG tablet; Take 1 (one) tablet (180 mg total) by mouth daily . - montelukast (SINGULAIR) 10 mg tablet; Take 1 (one) tablet (10 mg total) by mouth nightly . Susy Jaquez CNP in this encounter* Najma Vaca LPN - 08/06/2018 3:49 PM EST Mixed patient treatment vials for pollens,dust, molds and animals.Vials have born on date and will in 6 Months. in this encounter* Najma Vaca LPN - 11/03/2018 9:06 AM EDT Mixed patient treatment vials for pollens,dust, molds and animals.Vials have born on date and will in 6 Months. documented in this encounter* Susy Jaquez, SHOE PULLER - 02/05/2019 10:03 AM EDT ENT Clinic Follow up Note History of Present Illness Jo Roche is a 38 y.o. y/o female presents for follow up regarding chronic allergic rhinitis. She is a known patient in our clinic who has a longstanding history of allergies. She has septo/fess procedure performed by Dr Yuen in October 2017. She is currently on weekly maintenance SCIT given at home. She denies any reactions from the injections. In addition to the SCIT she takes Betzaida & Flonase daily. In the past she was on Singulair and asked to discontinue it because she felt it caused an increase in her drainage at night. She admits to an increase in her nasal congestion, sinus pressure & runny nose over the past week with the change in the weather. She denies any associated fevers, nausea or vomiting. She denies any recent sinus infections requiring antibiotics. Allergies Allergen Reactions Tramadol Animal Dander Itching and Rash Mold Itching Tree And Shrub Pollen Itching and Rash Past Medical History: Diagnosis Date Anemia Depression Social History Socioeconomic History Marital status: Spouse name: Not on file Number of children: Not on file Years of education: Not on file Highest education level: Not on file Occupational History Not on file Social Needs Financial resource strain: Not on file Food insecurity: Worry: Not on file Inability: Not on file Transportation needs: Medical: Not on file Non-medical: Not on file Tobacco Use Smoking status: Never Smoker Smokeless tobacco: Never Used Substance and Sexual Activity Alcohol use: Yes Comment: rarely Drug use: No Sexual activity: Yes Partners: Male control/protection: I.U.D. Lifestyle Physical activity: Days per week: Not on file Minutes per session: Not on file Stress: Not on file Relationships Social connections: Talks on phone: Not on file Gets together: Not on file Attends yazdanism service: Not on file Active member of club or organization: Not on file Attends meetings of clubs or organizations: Not on file Relationship status: Not on file Other Topics Concern Not on file Social History Narrative Not on file Family History Problem Relation Age of Onset Heart disease Father Cancer Paternal Aunt Cancer Maternal Grandmother Cancer Paternal Grandmother Past Surgical History: Procedure Laterality Date ACHILLES TENDON SURGERY release ACL REPAIR ADENOIDECTOMY ankle scope KNEE CARTILAGE SURGERY LEG SURGERY Left rods, pins and screws, muscle transplant SINUS SURGERY SKIN GRAFT LOWER EXTREMITY TONSILLECTOMY The following systems were reviewed and revealed the following in addition to any already discussedin the HPI: Review of Systems Constitution: Negative for chills, fever and malaise/fatigue. HENT: Positive for congestion. Negative for ear discharge, ear pain, hearing loss, hoarse voice, nosebleeds, sore throat and tinnitus. Patient has noticed an increase in nasal congestion, runny nose, sinus pressure over the past several weeks History of septo\Fess procedure October [address] Yuen Eyes: Negative for discharge, pain, photophobia and redness. Itchy, watery eyes, occasional clear film over her eyes Cardiovascular: Negative for chest pain, leg swelling, near-syncope and syncope. Respiratory: Negative for cough, shortness of breath, sleep disturbances due to breathing and snoring. Endocrine: Negative for cold intolerance and heat intolerance. Hematologic/Lymphatic: Negative for adenopathy and bleeding problem. Does not bruise/bleed easily. Skin: Negative for color change, dry skin, itching and rash. Musculoskeletal: Negative for falls, joint swelling, muscle cramps and muscle weakness. Gastrointestinal: Negative for nausea and vomiting. Neurological: Positive for headaches ( Occasional due to sinus pressure). Negative for dizziness, light-headedness, loss of balance, numbness, seizures, tremors, vertigo and weakness. Psychiatric/Behavioral: Positive for depression ( Patient is currently taking Wellbutrin and Celexa). Negative for altered mental status and substance abuse. The patient is not nervous/anxious. Allergic/Immunologic: Positive for environmental allergies ( Patient is currently doing weekly maintenance S CIT at home, in addition to Betzaida & Flonase daily ). Negative for persistent infections. Physical Exam Vitals: 02/05/19 0943 BP: 130/88 Pulse: 80 SpO2: 98% Weight: 69.9 kg (154 lb 3 oz) Physical Exam Constitutional: She is oriented to person, place, and time and well-developed, well-nourished, and in no distress. Vital signs are normal. She appears healthy. She does not have a sickly appearance. No distress. HENT: Head: Normocephalic and atraumatic. Right Ear: Hearing, tympanic membrane and external ear normal. No drainage, swelling or tenderness.A foreign body (scant cerumen noted along ear canal ) is present. No mastoid tenderness. No middle ear effusion. No decreased hearing is noted. Left Ear: Hearing, tympanic membrane, external ear and ear canal normal. No drainage, swelling or tenderness. No foreign bodies. No mastoid tenderness. No middle ear effusion. No decreased hearing ( ) is noted. Nose: Mucosal edema and rhinorrhea present. No nose lacerations, sinus tenderness, nasal deformity or septal deviation. Right sinus exhibits no maxillary sinus tenderness and no frontal sinus tenderness. Left sinus exhibits no maxillary sinus tenderness and no frontal sinus tenderness. Mouth/Throat: Uvula is midline, oropharynx is clear and moist and mucous membranes are normal. No oropharyngeal exudate. Eyes: Right eye exhibits no discharge. Left eye exhibits no discharge. Right conjunctiva is injected ( Mild). Left conjunctiva is injected ( Mild). Neck: Trachea normal. No tracheal deviation present. No thyroid mass present. Lymphadenopathy: Head (right side): No submental and no submandibular adenopathy present. Head (left side): No submental and no submandibular adenopathy present. She has no cervical adenopathy. Neurological: She is alert and oriented to person, place, and time. Gait normal. Skin: Skin is warm and dry. She is not diaphoretic. Psychiatric: Mood normal. Assessment and Plan: Jo Roche is a 38 y.o. y/o female who presents with chronic allergic rhinitis. Patient is doing well on her current medical regime. She was educated to continue weekly SCIT injections at this time. She is now on maintenance SCIT & may trial going to biweekly injections after fall is over & progressing into winter. She was educated to continue Betzaida & Flonase. She should use nasal saline irrigations to help purge the increase in nasal drainage she is currently experiencing. She may use OTC nasal saline gel to help with nasal dryness & irritation. She was given a prescription for Pataday for allergic conjunctivitis. Refills on all meds provided. Since the patient is doing well & now on maintenance she may follow up in 6 months for allergies. Patent verbalized understanding & is in agreement with the plan. She may follow up sooner forany related or non related problems or concerns. 1. Chronic allergic rhinitis - olopatadine 0.2 % Drop; Apply 1 (one) drop to eye daily . Dispense: 2.5 mL; Refill: 6 - fexofenadine (BETZAIDA) 180 MG tablet; Take 1 (one) tablet (180 mg total) by mouth daily . Dispense: 30 tablet; Refill: 11 - syringe with needle Syrg; Administer 2 allergy injections weekly, using two allergy syringes weekly . Dispense: 100 Syringe; Refill: 5 - fexofenadine (BETZAIDA) 180 MG tablet; Take 1 (one) tablet (180 mg total) by mouth daily . Dispense: 30 tablet; Refill: 11 - fluticasone propionate (FLONASE) 50 mcg/actuation nasal spray; Instill 2 (two) sprays into each nostril daily . Dispense: 16 g; Refill: 11 Diagnoses and all orders for this visit: Chronic allergic rhinitis - olopatadine 0.2 % Drop; Apply 1 (one) drop to eye daily . - fexofenadine (BETZAIDA) 180 MG tablet; Take 1 (one) tablet (180 mg total) by mouth daily . - syringe with needle Syrg; Administer 2 allergy injections weekly, using two allergy syringes weekly . Allergic conjunctivitis of both eyes - fexofenadine (BETZAIDA) 180 MG tablet; Take 1 (one) tablet (180 mg total) by mouth daily . - fluticasone propionate (FLONASE) 50 mcg/actuation nasal spray; Instill 2 (two) sprays into each nostril daily . Susy Jaquez CNP documented in this encounter* Cindy Torres CNP - 01/18/2020 1:00 PM EDT Patient is a 39 year old female here today for follow up of a left patella fracture. She has been wearing a playmaker brace with her knee straight and using crutches for the last 1.5 weeks, the otherhalf she was weight bearing with the brace. I am going to add 20 degrees of flexion to her brace and have her follow up in 2 weeks for an xray and to advance her brace. She is doing better, still having some pain rates it a 4/10. She is requesting a MRI to be done because of her history of a torn meniscus and now the patella fracture, she states her knee feels really unstable without the brace and she is wanting to see if something is torn. Positive McMurrays sign from my gentle knee exam because of the vertical patella fracture. I am going to order this for further evaluation. documented in this encounter* Susy Jaquez CNP - 02/16/2020 12:56 PM EDT ENT Clinic Follow up Note History of Present Illness Jo Roche is a 39 y.o. y/o female presents for follow up regarding resuming immunotherapy. She is a known patient in the clinic who has a longstanding history of allergies. She has septo/fess procedure performed by Dr Yuen in October 2017. She previously was on SCIT for approximately 1 year & doing home injections, until she discontinued therapy in late 2018. She denies any previous reactions from the injections. Since she has been off of immunotherapy for approximately 1 year, she has noticed a severe increasein her allergy symptoms. She admits to an increase in her nasal congestion, sinus pressure, copiousdrainage from nose, headaches, & ear pressure over the past several months. Patient reports shefeels miserable & is requesting to resume immunotherapy. She denies any associated fevers, nausea or vomiting. She denies any recent sinus infections requiring antibiotics. Her current daily allergy regime is OTC antihistamine as needed, daily Flonase & navage (nasal saline irrigations) daily. Patient reports her nose is so clogged that she can barely breath & it is keeping her up at night. She feels burning, itching, tenderness inside the nose & has been having scant bleeding from the nose. In the past she was on Singulair and asked to discontinue it because she felt it caused an increase in her drainage at night & was not helpful to her. She was previously treated with Betzaida, however her insurance would not cover it, so she has been using OTCmedication as needed with minimal relief. She is asking if there are other treatment options that her insurance might cover. Allergies Allergen Reactions Tramadol Animal Dander Itching and Rash Mold Itching Tree And Shrub Pollen Itching and Rash Past Medical History: Diagnosis Date Anemia Depression Social History Socioeconomic History Marital status: Spouse name: Not on file Number of children: Not on file Years of education: Not on file Highest education level: Not on file Occupational History Not on file Social Needs Financial resource strain: Not on file Food insecurity Worry: Not on file Inability: Not on file Transportation needs Medical: Not on file Non-medical: Not on file Tobacco Use Smoking status: Never Smoker Smokeless tobacco: Never Used Substance and Sexual Activity Alcohol use: Yes Comment: rarely Drug use: No Sexual activity: Yes Partners: Male control/protection: I.U.D. Lifestyle Physical activity Days per week: Not on file Minutes per session: Not on file Stress: Not on file Relationships Social connections Talks on phone: Not on file Gets together: Not on file Attends yazdanism service: Not on file Active member of club or organization: Not on file Attends meetings of clubs or organizations: Not on file Relationship status: Not on file Other Topics Concern Not on file Social History Narrative Not on file Family History Problem Relation Age of Onset Heart disease Father Cancer Paternal Aunt Cancer Maternal Grandmother Cancer Paternal Grandmother Past Surgical History: Procedure Laterality Date ACHILLES TENDON SURGERY release ACL REPAIR ADENOIDECTOMY ankle scope KNEE CARTILAGE SURGERY LEG SURGERY Left rods, pins and screws, muscle transplant SINUS SURGERY SKIN GRAFT LOWER EXTREMITY TONSILLECTOMY The following systems were reviewed and revealed the following in addition to any already discussedin the HPI: Review of Systems Constitution: Negative for chills, fever and malaise/fatigue. HENT: Positive for congestion (severe, worse on the right side ) and ear pain (bilateral ear pressure, plugged sensation inside the right ear ). Negative for ear discharge, hearing loss, hoarse voice, nosebleeds, sore throat and tinnitus. Patient has noticed an increase in nasal congestion, runny nose, sinus pressure, ear pressure &headaches over the past several months History of septo\Fess procedure October [address] Yuen Eyes: Negative for discharge, pain, photophobia and redness. Itchy, watery eyes, occasional clear film over her eyes Cardiovascular: Negative for chest pain, leg swelling, near-syncope and syncope. Respiratory: Positive for sleep disturbances due to breathing (due to her allergies & severe nasal congestion ). Negative for cough, shortness of breath and snoring. Endocrine: Negative for cold intolerance and heat intolerance. Hematologic/Lymphatic: Negative for adenopathy and bleeding problem. Does not bruise/bleed easily. Skin: Negative for color change, dry skin, itching and rash. Musculoskeletal: Negative for falls, joint swelling, muscle cramps and muscle weakness. Gastrointestinal: Negative for nausea and vomiting. Neurological: Positive for headaches (due to sinus pressure ). Negative for dizziness, light-headedness, loss of balance, numbness, seizures, tremors, vertigo and weakness. Psychiatric/Behavioral: Positive for depression ( Patient is currently taking Wellbutrin and Celexa). Negative for altered mental status and substance abuse. The patient is not nervous/anxious. Allergic/Immunologic: Positive for environmental allergies (Hx of SCIT from Mar 2018-Apr 2019, wants to resume SCIT, currently using OTC antihistamine as needed & flonase daily with minimal relief ). Negative for persistent infections. Physical Exam Vitals: 02/16/20 1054 BP: (!) 153/93 BP Location: Left arm Patient Position: Sitting BP Cuff Size: Adult Pulse: 69 Resp: 18 Temp: 99.6 F (37.6 C) TempSrc: Oral SpO2: 98% Weight: 68.4 kg (150 lb 12.8 oz) Height: 5' 2 Physical Exam Constitutional: She is oriented to person, place, and time and well-developed, well-nourished, and in no distress. Vital signs are normal. She appears healthy. She does not have a sickly appearance. No distress. HENT: Head: Normocephalic and atraumatic. Right Ear: Hearing, tympanic membrane and external ear normal. No drainage, swelling or tenderness.A foreign body (excessive brown cerumen partially blocking ear canal removed with loop & forceps ) is present. No mastoid tenderness. No middle ear effusion. No decreased hearing is noted. Left Ear: Hearing, tympanic membrane, external ear and ear canal normal. No drainage, swelling or tenderness. No foreign bodies. No mastoid tenderness. No middle ear effusion. No decreased hearing ( ) is noted. Nose: Mucosal edema and rhinorrhea present. No nose lacerations, sinus tenderness, nasal deformity or septal deviation. Right sinus exhibits maxillary sinus tenderness and frontal sinus tenderness. Left sinus exhibits maxillary sinus tenderness and frontal sinus tenderness. Mouth/Throat: Uvula is midline, oropharynx is clear and moist and mucous membranes are normal. No oropharyngeal exudate. Eyes: Right eye exhibits no discharge. Left eye exhibits no discharge. Right conjunctiva is injected ( Mild). Left conjunctiva is injected ( Mild). Neck: Trachea normal. No tracheal deviation present. No thyroid mass present. Lymphadenopathy: Head (right side): No submental and no submandibular adenopathy present. Head (left side): No submental and no submandibular adenopathy present. She has no cervical adenopathy. Neurological: She is alert and oriented to person, place, and time. Gait normal. Skin: Skin is warm and dry. She is not diaphoretic. Psychiatric: Mood normal. Procedure: With the patient in a sitting position utilizing the microscope excessive dark brown cerumen was found partially blocking the right ear canal causing symptoms noted in physical exam. Excessive cerumen was removed from the right ear canals using loop & forceps. The canals and tympanic membranes were then visualized and found to be without acute/chronic pathology. Assessment and Plan: Jo Roche is a 39 y.o. y/o female who presents with chronic allergic rhinitis & to discuss resuming immunotherapy. Upon physical exam there is Nasal dryness & irritation, & scabbing noted along the bilateral nasal septum, no active bleeding. There is significant nasal turbinate hypertrophy & symptoms of allergy exacerbation. Patient was given bacitracin ointment to use inside the nose twice a day for 7 days to aid in healing. She will be given a prescription of nasal saline gel to use 2-3 times daily to help with dryness & irritation. She was educated to discontinue Flonase for 1 week to allow her nose to heal & then she may resume it Flonase. She will be treated with 10 mg of prednisone for 10 days to help with swelling & pain, while allergy medication builds back up in her system. She was given a script for Claritin to take daily. She was educated if she prefers to stay on Betzaida in the future then she can buy a generic form of betzaida at [email or web address] for reasonable. Continue nasal saline irrigations daily. Patient was educated to only use half of the salt package because the inside of her nose is too irritated. Patient may resume build up SCIT. Her previous dose of SCIT will be decrease to prevent reactions. She was educated we can resume #1 vial but she will not need #2 vial since there were only a few antigens. She was educated I would like her to have in office injections given at first so we can monitor for reactions & she can transition back to home injections once she reaches maintenance if she is doing well. Refill on epi pen was provided & patient was educated to bring the epi pen withher for the first injection. First in office SCIT was scheduled for in 2 weeks so we have time to make new vials. Follow up in 3months with me for allergies. Patient verbalized understanding & is in agreement with the plan of care. 1. Chronic allergic rhinitis - loratadine (CLARITIN) 10 mg tablet; Take 1 (one) tablet (10 mg total) by mouth daily . Dispense: 30 tablet; Refill: 11 - predniSONE (DELTASONE) 10 MG tablet; Take 1 (one) tablet (10 mg total) by mouth daily for 10 days. Dispense: 10 tablet; Refill: 0 - EPINEPHrine (EPIPEN) 0.3 mg/0.3 mL AtIn; Inject 0.3 mL (0.3 mg total) into the mid-thigh as needed for severe allergic reaction. . Dispense: 1 each; Refill: 12 2. Nasal dryness - sodium chloride-aloe vera [place]; Instill 1 spray into each nostril 2 (two) times a day as needed .Dispense: 22 mL; Refill: 5 Diagnoses and all orders for this visit: Chronic allergic rhinitis - loratadine (CLARITIN) 10 mg tablet; Take 1 (one) tablet (10 mg total) by mouth daily . - predniSONE (DELTASONE) 10 MG tablet; Take 1 (one) tablet (10 mg total) by mouth daily for 10 days. - EPINEPHrine (EPIPEN) 0.3 mg/0.3 mL AtIn; Inject 0.3 mL (0.3 mg total) into the mid-thigh as needed for severe allergic reaction. . Nasal dryness - sodium chloride-aloe vera [place]; Instill 1 spray into each nostril 2 (two) times a day as needed . Excessive cerumen in right ear canal Susy Jaquez CNP documented in this encounter* Najma Vaca LPN - 02/18/2020 2:44 PM EDT Mixed patient treatment vials for pollens,dust, molds and animals.Vials have born on date and will in 6 Months. 08/18/2019 documented in this encounter* Nahomy Gunn MA - 03/01/2020 9:21 AM EDT Allergy injection was not administered due to patient not having Epi pen present. Patient was rescheduled for a later time slot. documented in this encounter* Tali Chew MA - 03/01/2020 10:58 AM EDT Patient Name: Jo Roche : 1980 EpiPen Expiration: 04/22 Shot given by: MARY Thompson Dose: 0.1 BU Symptoms since last shot: Y/N None Mild Moderate Severe Comments PND X Rhinitis X Congestion X Itchy Eyes X Y/N Description Injection site Reaction last shot First Injection Other/Comments Pollens Dust/Mold/Animals Injection site Arm (R/L) L arm none Safety Vial Wheal (If applicable): documented in this encounter* Nahomy Gunn MA - 03/07/2020 1:07 PM EDT Patient Name: Jo Roche : 1980 EpiPen Expiration: 04/2021 Shot given by: Nahomy Gunn MA Dose: 0.2 bu Symptoms since last shot: Y/N None Mild Moderate Severe Comments PND X Rhinitis X Congestion X Itchy Eyes X Y/N Description Injection site Reaction last shot N Other/Comments Pollens Dust/Mold/Animals Injection site Arm (R/L) right none Safety Vial Wheal (If applicable): documented in this encounter* Lead PressmanFrancisco CNP - 10/27/2018 1:28 PM EDT ENT Clinic Follow up Note History of Present Illness Jo Roche is a 38 y.o. y/o female presents for follow up regarding chronic allergic rhinitis,and bilateral allergic conjunctivitis. She is a known patient to our clinic who has a history of septo/fess with Dr. Yuen in October 2017. Sheis currently on weekly buildup S CIT injections since March 2018 at home and reports no reactionsto injections. She also takes Betzaida, Singulair, Flonase, and saline irrigations in combination for allergy symptoms. She reports she feels as if Singulair actually makes drainage worse at night andasking to discontinue. Patient reports last week she had left ear discomfort, green/brown sinus drainage, and was treated for sinus infection by her PCP with Amoxicillin which she has completed. She reports sinus pressure/pain, left ear pressure, nasal congestion, postnasal drainage, cough, and intermittent itchy/watery eyes. She denies sore throat, difficulty swallowing, ear pain/drainage, clicking/popping sounds, other fevers, or infections. Allergies Allergen Reactions Tramadol Animal Dander Itching and Rash Mold Itching Tree And Shrub Pollen Itching and Rash Past Medical History: Diagnosis Date Anemia Depression Social History Socioeconomic History Marital status: Spouse name: Not on file Number of children: Not on file Years of education: Not on file Highest education level: Not on file Occupational History Not on file Social Needs Financial resource strain: Not on file Food insecurity: Worry: Not on file Inability: Not on file Transportation needs: Medical: Not on file Non-medical: Not on file Tobacco Use Smoking status: Never Smoker Smokeless tobacco: Never Used Substance and Sexual Activity Alcohol use: Yes Comment: rarely Drug use: No Sexual activity: Yes Partners: Male control/protection: IUD Lifestyle Physical activity: Days per week: Not on file Minutes per session: Not on file Stress: Not on file Relationships Social connections: Talks on phone: Not on file Gets together: Not on file Attends yazdanism service: Not on file Active member of club or organization: Not on file Attends meetings of clubs or organizations: Not on file Relationship status: Not on file Other Topics Concern Not on file Social History Narrative Not on file Family History Problem Relation Age of Onset Heart disease Father Cancer Paternal Aunt Cancer Maternal Grandmother Cancer Paternal Grandmother Past Surgical History: Procedure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 information in this document.
[2023-08-04 13:28] LABS: Amphetamine Urine VISTA NEGATIVE (<1000 ng/mL); Barbiturate Urine VISTA NEGATIVE (< 200 ng/mL); Benzodiazepine Urine VISTA NEGATIVE (< 200 ng/mL); Cocaine Urine VISTA NEGATIVE (< 300 ng/mL); Ecstacy Urine VISTA NEGATIVE (< 500 ng/mL); Methadone Urine VISTA NEGATIVE (< 300 ng/mL); PCP Urine VISTA NEGATIVE (< 25 ng/mL); THC Urine VISTA NEGATIVE (< 50 ng/mL); Vista UDS pH Range 6
== END | disposition home or self-care (01) ==
LOC: LAB 12:48
PROVIDERS: Referring Provider Anesthesiology Pain Medicine; Visit Provider Anesthesiology Pain Medicine
DX: F11.20 Opioid dependence, uncomplicated (principal)
CPT/HCPCS: 80307

== ENCOUNTER → 2023-08-04 | Outpatient (CLI) | payer MEDICARE, MEDICAID, SELFPAY ==
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
== END | disposition home or self-care (01) ==
LOC: LAB.FUTURE 16:21
PROVIDERS: Visit Provider Anesthesiology Pain Medicine
DX: F11.20 Opioid dependence, uncomplicated (principal)

== ENCOUNTER → 2023-12-22 | Outpatient (CLI) | payer MEDICARE, MEDICAID, SELFPAY ==
[2023-12-22 12:53] LABS: Amphetamine Urine VISTA NEGATIVE (<1000 ng/mL); Barbiturate Urine VISTA NEGATIVE (< 200 ng/mL); Benzodiazepine Urine VISTA NEGATIVE (< 200 ng/mL); Cocaine Urine VISTA NEGATIVE (< 300 ng/mL); Ecstacy Urine VISTA NEGATIVE (< 500 ng/mL); Methadone Urine VISTA NEGATIVE (< 300 ng/mL); PCP Urine VISTA NEGATIVE (< 25 ng/mL); THC Urine VISTA NEGATIVE (< 50 ng/mL); Vista UDS pH Range 8
== END | disposition home or self-care (01) ==
LOC: LAB 12:20
PROVIDERS: Referring Provider Anesthesiology Pain Medicine; Visit Provider Anesthesiology Pain Medicine
DX: F11.20 Opioid dependence, uncomplicated (principal)
CPT/HCPCS: 80307

== ENCOUNTER → 2024-09-27 | Outpatient (CLI) | payer MEDICAID, MEDICARE, SELFPAY ==
[2024-09-27 12:22] LABS: Amphetamine Urine NEGATIVE (<1000 ng/mL); Barbiturate Urine NEGATIVE (< 200 ng/mL); Benzodiazepine Urine NEGATIVE (< 200 ng/mL); Buprenorphine Urine NEGATIVE (< 200 ng/mL); Cocaine Urine NEGATIVE (< 300 ng/mL); Fentanyl, Urine NEGATIVE; Methadone Urine NEGATIVE (< 300 ng/mL); Opiates Urine PRESUMPTIVE POSITIVE (< 300 ng/mL); Oxycodone, Urine NEGATIVE (< 100 ng/mL); PCP Urine NEGATIVE (< 25 ng/mL); THC Urine NEGATIVE (< 50 ng/mL)
== END | disposition home or self-care (01) ==
PROVIDERS: PCP Nurse Practitioner Family; Referring Provider Anesthesiology Pain Medicine; Visit Provider Anesthesiology Pain Medicine
DX: F11.20 Opioid dependence, uncomplicated (principal)
CPT/HCPCS: 36415; 80307